=== PATIENT | female | born 1995 | race Caucasian/White ===

== ENCOUNTER → 2017-10-01 | Outpatient (CLI) | payer MEDICAID ==
[~2017-10-01] MED LIST: DOXY10TA PO; MACR100C2 PO; PREN1CAP7 PO; TERC.4%V VAGINAL
== END ==
LOC: HPND 14:14
PROVIDERS: ATTEND Obstetrics & Gynecology
DX: O35.8XX0 Maternal care for other (suspected) fetal abnormality and damage, not applicable or unspecified (principal)
CPT/HCPCS: 76811